=== PATIENT | female | born 1960 | race Two or more races ===

== ENCOUNTER → 2023-11-22 | Outpatient (CLI) | payer MEDICAID | END | disposition home or self-care (01) | LOC: XYW 09:42 | PROVIDERS: ATTEND Specialist | DX: I51.7 Cardiomegaly (principal); I31.39 Other pericardial effusion (noninflammatory); R00.2 Palpitations; R06.00 Dyspnea, unspecified | CPT/HCPCS: 71046; 78582; A9540; A9558 ==